=== PATIENT | female | born 1995 | race Caucasian/White ===

== ENCOUNTER 2017-08-12 00:27 | Emergency (ER) | payer SELFPAY ==
[~2017-08-12] VITALS: Ht 165.1 cm; Wt 54.4 kg
[2017-08-12 01:02] LABS: BASOPHILS % (AUTO) 0.3 % (0.0-2.0); EOSINOPHILS # (AUTO) 0.1 K/uL (0.0-0.7); EOSINOPHILS % (AUTO) 0.9 % (0.0-7.0); HEMATOCRIT 44.4 % (37-47); HEMOGLOBIN 15.1 G/DL (12.0-16.0); LYMPHOCYTES # (AUTO) 3.4 K/UL (0.8-4.8); LYMPHOCYTES % (AUTO) 40.4 % (20.5-51.5); MEAN CORPUSCULAR HGB CONC 34 g/dL (32.0-37.0); MEAN CORPUSCULAR VOLUME 85.8 FL (81.0-99.0); MONOCYTES # (AUTO) 0.5 K/UL (0.1-1.30); MONOCYTES % (AUTO) 5.6 % (0.0-11.0); NEUTROPHILS # (AUTO) 4.5 K/UL (1.8-8.9); NEUTROPHILS % (AUTO) 52.8 % (38.5-71.5); PLATELET COUNT (AUTO) 280 K/UL (150-450); RED BLOOD CELL COUNT(AUTO) 5.18 MIL/UL (4.2-5.4); WHITE BLOOD COUNT (AUTO) 8.5 K/UL (4.0-11.2)
--- NOTE | 2017-08-12 01:10 | NUR ---
Pt to room, changed into gown and placed on monitor. Pt ST on monitor. Pt c/o sharp midsternal chest pain radiating to her back with shortness of breath, dizziness and increased anxiety. Pt seen by Dr. Longoria. EKG obtained. IV established. Labs drawn and sent. Pt medicated for anxiety and chest pain, will monitor for effects of medication. Fluid bolus infusing freely to gravity. Pt resting in position of comfort for self. Family at bedside. Pt appears more calm since when she arrived, no longer crying, no longer restless, facial grimacing no longer noted. Resp even and unlabored.
[2017-08-12 01:13] LABS: CREATININE 0.9 mg/dL (0.6-1.3); POTASSIUM 2.9 mmol/L (3.5-5.1)
[2017-08-12 01:21] LABS: *AMPHETAMINE, URINE POSITIVE (NEGATIVE); *BARBITURATE, URINE NEGATIVE (NEGATIVE); *CANNABINOID, URINE POSITIVE (NEGATIVE); *COCCAINE, URINE NEGATIVE (NEGATIVE); *OPIATE, URINE NEGATIVE (NEGATIVE); *PHENCYCLIDINE SCREEN,URINE NEGATIVE (NEGATIVE)
[2017-08-12 01:25] LABS: BILIRUBIN,DIRECT 0.1 mg/dL (0.0-0.2); BILIRUBIN,TOTAL 0.3 mg/dL (0.2-1.0)
--- NOTE | 2017-08-12 02:30 | NUR ---
Pt resting in position of comfort for self. Pt appears to be calmer, no longer crying. NSR on monitor with intermittent ST. Resp even and unlabored.
--- NOTE | 2017-08-12 03:45 | NUR ---
Pt resting in position of comfort for self. Pt conts to c/o burning like pain midsternal sts its a 3/ but sts it is a different burning pain then how heartburn feels. Dr. Longoria notified. Repeat troponin drawn and sent. Pt c/o nausea, Dr. Longoria notified and pt medication. Will monitor for effects of medication.
--- NOTE | 2017-08-12 04:35 | NUR ---
Pt stable for discharge per Dr. Longoria. IV dc'd, catheter intact. Drsg applied. No problems noted to site. Pt given ACI. Pt verbalized understanding of dc instructions. Pt ambulated out of er with steady gait and ride home.
[2017-08-12 05:22] VITALS: BP 123/73
== END 2017-08-12 04:35 | disposition home or self-care (01) ==
LOC: ER 00:31
DX: F41.9 Anxiety disorder, unspecified (principal); R07.9 Chest pain, unspecified; E87.6 Hypokalemia; R00.0 Tachycardia, unspecified; K21.9 Gastro-esophageal reflux disease without esophagitis; Z88.0 Allergy status to penicillin
CPT/HCPCS: 36415; 71010; 80048; 80076; 80307; 83880; 84443; 84484 ×2; 84703; 85025; 85379; 93005; 96361; 96374; 96375; 99285; A4663; J2060; J2405; J7030; 70030-TC

== ENCOUNTER 2019-03-30 21:25 | Emergency (ER) | payer BC ==
[~2019-03-30] VITALS: Ht 157.5 cm; Wt 46.7 kg
[2019-03-30] MEDS ORDERED: IBUPROFEN 400 MG TABLET (21:34)
[2019-03-30] MEDS ORDERED: ACET1TAB14 PO (21:34)
[2019-03-30] MEDS ORDERED: METO-356 PO (21:34)
[2019-03-30] MEDS ORDERED: CLIN300C11 PO (21:34)
--- NOTE | 2019-03-30 21:40 | NUR ---
Pt. ambulated into ED w/ c/o 05/08 toothache pain x 1 day that does not radiate, pt. had an abscess and root canal performed 5 days ago, A/Ox4, denies F/C/N/V, RR even and unlabored, speaks in clear and complete sentences,
[2019-03-30] MEDS ORDERED: HYDROCODONE/APAP 5-325MG TABLET PO ONE (21:45)
[2019-03-30] MEDS ORDERED: KETOROLAC TROMETHAMINE 60 MG INJ IM ONE ×2 (21:45→21:48)
[2019-03-30] MEDS ORDERED: HYDROCODONE/APAP 5-325MG TABLET ONE (21:48)
--- NOTE | 2019-03-30 22:26 | NUR ---
Patient discharged to home in stable conditon. Written and verbal after care instructions given. Patient verbalizes understanding of instructions. Pt. d/c w/ prescription per MD order, d/c papers signed, all belongings w/ pt., ID band removed, ambulated off unit w/ steady gait accompanied by male color specialist, JAKY, NAD
== END 2019-03-30 22:28 | disposition home or self-care (01) ==
LOC: ER 21:26
DX: K08.89 Other specified disorders of teeth and supporting structures (principal); K21.9 Gastro-esophageal reflux disease without esophagitis; Z88.0 Allergy status to penicillin; Z79.1 Long term (current) use of non-steroidal anti-inflammatories (NSAID); Z79.2 Long term (current) use of antibiotics; Z79.899 Other long term (current) drug therapy
CPT/HCPCS: 96372; 99283; J1885; A4663